=== PATIENT | male | born 1980 | race African-American/Black ===

== ENCOUNTER 2018-02-27 18:17 | Emergency (ER) | payer MEDICAID ==
[~2018-02-27] VITALS: Ht 182.9 cm; Wt 75.0 kg
[~2018-02-27 18:17] MED LIST: SEROQUEL; TRAZADONE
[2018-02-27 20:23] LABS: BASOPHILS % 0.3 % (0.0-2.0); EOSINOPHILS % 1.4 % (0.0-5.0); HEMATOCRIT. 40.5 % (42.0-52.0); HEMOGLOBIN. 13.6 g/dL (14.0-18.0); LYMPHOCYTES % 47.3 % (20.0-50.0); MEAN CORPUSCULAR HEMOGLOBIN 31.8 pg (28.0-32.0); MEAN CORPUSCULAR VOLUME 94.7 fL (80.0-94.0); MEAN PLATELET VOLUME 7.4 fl (7.4-10.4); MONOCYTES % 5.8 % (2.0-8.0); NEUTROPHILS % 45.2 % (40.0-76.0); PLATELET 201 x1000/uL (130-400); RED BLOOD CELL COUNT 4.28 mill/uL (4.7-6.1); RED CELL DISTRIBUTION WIDTH 12.8 % (11.6-14.6)
[2018-02-27 20:26] LABS: CHLORIDE 108 mEq/L (98-107)
[2018-02-27 20:30] LABS: ETHANOL BLOOD < 10 mg/dL
[2018-02-27 23:11] LABS: *AMPHETAMINES SCREEN URINE NEGATIVE (NEGATIVE)
[2018-02-27 23:12] LABS: *BARBITURATES SCREEN URINE NEGATIVE (NEGATIVE); *BENZODIAZEPINES SCREEN URINE NEGATIVE (NEGATIVE); *COCAINE SCREEN URINE NEGATIVE (NEGATIVE); METHADONE URINE SCREEN NEGATIVE (NEGATIVE); OPIATES URINE SCREEN NEGATIVE (NEGATIVE); PHENCYCLIDINE URINE SCREEN NEGATIVE (NEGATIVE)
[2018-02-27 23:13] LABS: CANNABINOID URINE SCREEN PRESUMTIVE POSITIVE (NEGATIVE)
[2018-02-28 17:45] VITALS: BP 134/74
== END 2018-02-28 17:47 | disposition home or self-care (01) ==
LOC: ER 18:17
DX: R44.0 Auditory hallucinations (principal); F20.9 Schizophrenia, unspecified; I10 Essential (primary) hypertension; F17.200 Nicotine dependence, unspecified, uncomplicated; F12.10 Cannabis abuse, uncomplicated; Z79.899 Other long term (current) drug therapy
CPT/HCPCS: 36415; 80053; 80305; 80307; 80329; 85025; 99284; G0482; J7030

== ENCOUNTER 2018-10-12 19:52 | Emergency (ER) | payer MEDICAID ==
[~2018-10-12] VITALS: Ht 188 cm; Wt 80.0 kg
[2018-10-13 05:02] LABS: BASOPHILS % 0.5 % (0.0-2.0); EOSINOPHILS % 1.1 % (0.0-5.0); HEMATOCRIT. 42.2 % (42.0-52.0); HEMOGLOBIN. 14.4 g/dL (14.0-18.0); MEAN CORPUSCULAR HEMOGLOBIN 32.1 pg (28.0-32.0); MEAN CORPUSCULAR VOLUME 93.9 fL (80.0-94.0); MEAN PLATELET VOLUME 7.4 fl (7.4-10.4); MONOCYTES % 7.3 % (2.0-8.0); NEUTROPHILS % 60.1 % (40.0-76.0); PLATELET 192 x1000/uL (130-400); RED CELL DISTRIBUTION WIDTH 12.7 % (11.6-14.6)
[2018-10-13 05:03] LABS: CLARITY URINE CLEAR (CLEAR); COLOR URINE YELLOW (YELLOW); KETONES URINE NEGATIVE (NEGATIVE); LEUKOCYTE ESTERASE URINE NEGATIVE (NEGATIVE); NITRITE URINE NEGATIVE (NEGATIVE); OCCULT BLOOD URINE NEGATIVE (NEGATIVE); PH URINE 5.5 (4.5-8.0); PROTEIN URINE NEGATIVE (NEGATIVE); SPECIFIC GRAVITY URINE 1.013 (1.005-1.030); UROBILINOGEN URINE 0.2 E.U./dL (0.2-1.0)
[2018-10-13 05:09] LABS: CHLORIDE 107 mEq/L (98-107)
[2018-10-13 15:22] VITALS: BP 138/88
== END 2018-10-13 15:23 | disposition home or self-care (01) ==
LOC: ER 22:46
DX: R07.89 Other chest pain (principal); F20.9 Schizophrenia, unspecified; I10 Essential (primary) hypertension; F12.10 Cannabis abuse, uncomplicated; F17.210 Nicotine dependence, cigarettes, uncomplicated; Z98.890 Other specified postprocedural states
CPT/HCPCS: 36415; 71046; 80053; 81003; 83690; 85025; 99284; Z7610

== ENCOUNTER 2018-11-26 21:43 | Emergency (ER) | payer MEDICAID ==
[~2018-11-26] VITALS: Ht 188 cm; Wt 70.0 kg
[2018-11-26] MEDS ORDERED: OLANZAPINE 5MG TABLET PO STA (22:11)
[2018-11-26 22:36] LABS: CLARITY URINE CLEAR (CLEAR); COLOR URINE YELLOW (YELLOW); KETONES URINE TRACE (NEGATIVE); LEUKOCYTE ESTERASE URINE NEGATIVE (NEGATIVE); NITRITE URINE NEGATIVE (NEGATIVE); OCCULT BLOOD URINE NEGATIVE (NEGATIVE); PROTEIN URINE NEGATIVE (NEGATIVE); SPECIFIC GRAVITY URINE 1.014 (1.005-1.030)
[2018-11-26 22:48] LABS: BASOPHILS % 0.5 % (0.0-2.0); EOSINOPHILS % 0.5 % (0.0-5.0); HEMATOCRIT. 38.1 % (42.0-52.0); HEMOGLOBIN. 13.6 g/dL (14.0-18.0); LYMPHOCYTES % 29.9 % (20.0-50.0); MEAN CORPUSCULAR HEMOGLOBIN 32.8 pg (28.0-32.0); MEAN CORPUSCULAR VOLUME 91.8 fL (80.0-94.0); MEAN PLATELET VOLUME 7.5 fl (7.4-10.4); MONOCYTES % 6.7 % (2.0-8.0); NEUTROPHILS % 62.4 % (40.0-76.0); PLATELET 221 x1000/uL (130-400); RED BLOOD CELL COUNT 4.15 mill/uL (4.7-6.1); RED CELL DISTRIBUTION WIDTH 12.5 % (11.6-14.6)
[2018-11-26 22:49] LABS: CHLORIDE 105 mEq/L (98-107)
[2018-11-26 22:53] LABS: ETHANOL BLOOD < 10 mg/dL
[2018-11-26 22:54] LABS: METHADONE URINE SCREEN NEGATIVE (NEGATIVE); OPIATES URINE SCREEN NEGATIVE (NEGATIVE)
[2018-11-26 22:55] LABS: *AMPHETAMINES SCREEN URINE NEGATIVE (NEGATIVE); *BARBITURATES SCREEN URINE NEGATIVE (NEGATIVE); *BENZODIAZEPINES SCREEN URINE NEGATIVE (NEGATIVE); *COCAINE SCREEN URINE NEGATIVE (NEGATIVE); CANNABINOID URINE SCREEN PRESUMTIVE POSITIVE (NEGATIVE); PHENCYCLIDINE URINE SCREEN NEGATIVE (NEGATIVE)
[2018-11-26] MEDS ORDERED: POTASSIUM CHLORIDE 20MEQ TABLET SR PO ONE (23:00)
[2018-11-27 11:30] VITALS: BP 115/80
== END 2018-11-27 12:01 | disposition home or self-care (01) ==
LOC: ER 22:29
DX: R44.0 Auditory hallucinations (principal); E87.6 Hypokalemia; F12.10 Cannabis abuse, uncomplicated; I10 Essential (primary) hypertension; F17.200 Nicotine dependence, unspecified, uncomplicated; Z91.14 Patient's other noncompliance with medication regimen
CPT/HCPCS: 36415; 80305; 80320; 99284; G0480

== ENCOUNTER 2021-06-27 22:19 | Emergency (ER) | payer MEDICAID ==
[~2021-06-27] VITALS: Ht 190.5 cm; Wt 82.0 kg
[2021-06-27 23:07] LABS: BASOPHILS % 0.2 % (0.0-2.0); EOSINOPHILS % 1.5 % (0.0-5.0); HEMATOCRIT. 40.2 % (42.0-52.0); HEMOGLOBIN. 13.7 g/dL (14.0-18.0); LYMPHOCYTES % 48.7 % (20.0-50.0); MEAN CORPUSCULAR HEMOGLOBIN 31.6 pg (28.0-32.0); MEAN CORPUSCULAR VOLUME 92.8 fL (80.0-94.0); MEAN PLATELET VOLUME 7.2 fl (7.4-10.4); MONOCYTES % 6.8 % (2.0-8.0); NEUTROPHILS % 42.8 % (40.0-76.0); PLATELET 214 x1000/uL (130-400); RED BLOOD CELL COUNT 4.33 mill/uL (4.7-6.1); RED CELL DISTRIBUTION WIDTH 12.4 % (11.6-14.6)
[2021-06-27 23:12] LABS: CHLORIDE 112 mEq/L (98-107)
[2021-06-27 23:17] LABS: ETHANOL BLOOD < 10 mg/dL
[2021-06-28 01:17] LABS: CLARITY URINE CLEAR (CLEAR); COLOR URINE YELLOW (YELLOW); KETONES URINE NEGATIVE (NEGATIVE); LEUKOCYTE ESTERASE URINE NEGATIVE (NEGATIVE); NITRITE URINE NEGATIVE (NEGATIVE); OCCULT BLOOD URINE NEGATIVE (NEGATIVE); PH URINE 5.5 (4.5-8.0); PROTEIN URINE NEGATIVE (NEGATIVE); SPECIFIC GRAVITY URINE 1.028 (1.005-1.030)
[2021-06-28 01:54] LABS: *AMPHETAMINES SCREEN URINE NEGATIVE (NEGATIVE); *BARBITURATES SCREEN URINE NEGATIVE (NEGATIVE); *BENZODIAZEPINES SCREEN URINE NEGATIVE (NEGATIVE); *COCAINE SCREEN URINE NEGATIVE (NEGATIVE); METHADONE URINE SCREEN NEGATIVE (NEGATIVE); OPIATES URINE SCREEN NEGATIVE (NEGATIVE)
[2021-06-28 01:55] LABS: CANNABINOID URINE SCREEN PRESUMTIVE POSITIVE (NEGATIVE); PHENCYCLIDINE URINE SCREEN NEGATIVE (NEGATIVE)
[2021-06-28] MEDS ORDERED: SERTRALINE HCL 25MG TABLET PO SCH (09:00)
[2021-06-28] MEDS ORDERED: RISPERIDONE 1MG TABLET PO SCH (09:00)
[2021-06-28 13:16] VITALS: BP 126/87
[2021-06-28] MEDS ORDERED: TRAZODONE HCL 50MG TABLET PO SCH (21:00)
== END 2021-06-28 17:45 | disposition home or self-care (01) ==
LOC: ER 22:19
DX: R44.0 Auditory hallucinations (principal); Z98.890 Other specified postprocedural states; Z86.59 Personal history of other mental and behavioral disorders
CPT/HCPCS: 36415; 80053; 80305; 80307; 80320; 80329; 81003; 85025; 99285; Z7610; G0480

== ENCOUNTER 2022-06-25 00:10 | Emergency (ER) | payer MEDICAID ==
[~2022-06-25] VITALS: Ht 177.8 cm; Wt 75.0 kg
[2022-06-25 01:12] LABS: BASOPHILS % 0.5 % (0.0-2.0); EOSINOPHILS % 0.8 % (0.0-5.0); HEMATOCRIT. 41.5 % (42.0-52.0); HEMOGLOBIN. 14.5 g/dL (14.0-18.0); MEAN CORPUSCULAR VOLUME 94.8 fL (80.0-94.0); MEAN PLATELET VOLUME 7.1 fl (7.4-10.4); MONOCYTES % 6.9 % (2.0-8.0); NEUTROPHILS % 58.8 % (40.0-76.0); PLATELET 208 x1000/uL (130-400); RED BLOOD CELL COUNT 4.38 mill/uL (4.7-6.1); RED CELL DISTRIBUTION WIDTH 12.8 % (11.6-14.6)
[2022-06-25 01:13] LABS: CHLORIDE 103 mEq/L (98-107)
[2022-06-25 01:21] LABS: ETHANOL BLOOD < 10 mg/dL
[2022-06-25 06:17] LABS: *AMPHETAMINES SCREEN URINE NEGATIVE (NEGATIVE); *BARBITURATES SCREEN URINE NEGATIVE (NEGATIVE); *BENZODIAZEPINES SCREEN URINE NEGATIVE (NEGATIVE); *COCAINE SCREEN URINE NEGATIVE (NEGATIVE); CANNABINOID URINE SCREEN PRESUMTIVE POSITIVE (NEGATIVE); METHADONE URINE SCREEN NEGATIVE (NEGATIVE); OPIATES URINE SCREEN NEGATIVE (NEGATIVE); PHENCYCLIDINE URINE SCREEN NEGATIVE (NEGATIVE)
[2022-06-25] MEDS ORDERED: QUET200T MT (15:06)
[2022-06-25 15:53] VITALS: BP 115/84
[2022-06-25] MEDS ORDERED: QUETIAPINE FUMARATE 50MG TABLET PO SCH (21:00)
== END 2022-06-25 15:54 | disposition home or self-care (01) ==
LOC: ER 00:10
DX: F20.9 Schizophrenia, unspecified (principal); F32.A Depression, unspecified; R45.851 Suicidal ideations; I10 Essential (primary) hypertension; F12.10 Cannabis abuse, uncomplicated; Z20.822 Contact with and (suspected) exposure to COVID-19
CPT/HCPCS: 36415; 80053; 80305; 80307; 80320; 80329; 85025; 87426; 99285; G0480

== ENCOUNTER 2023-02-05 05:40 | Emergency (ER) | payer MEDICAID ==
[~2023-02-05] VITALS: Ht 188 cm; Wt 82.0 kg
[~2023-02-05 05:40] MED LIST changes: +QUET200T MT
[2023-02-05 06:03] VITALS: O2SAT 100
[2023-02-05 06:31] LABS: BASOPHILS % 0.7 % (0.0-2.0); EOSINOPHILS % 0.5 % (0.0-5.0); HEMATOCRIT. 41.5 % (42.0-52.0); HEMOGLOBIN. 14.6 g/dL (14.0-18.0); LYMPHOCYTES % 39.4 % (20.0-50.0); MEAN CORPUSCULAR HEMOGLOBIN 31.8 pg (28.0-32.0); MEAN CORPUSCULAR VOLUME 90.9 fL (80.0-94.0); MEAN PLATELET VOLUME 7.2 fl (7.4-10.4); MONOCYTES % 7.9 % (2.0-8.0); NEUTROPHILS % 51.5 % (40.0-76.0); PLATELET 187 x1000/uL (130-400); RED BLOOD CELL COUNT 4.57 mill/uL (4.7-6.1); RED CELL DISTRIBUTION WIDTH 12.5 % (11.6-14.6); WHITE BLOOD COUNT 5.5 x1000/uL (4.5-11.0)
[2023-02-05 06:44] LABS: CHLORIDE 105 mEq/L (98-107); INDEX HEMOLYSI 1 (1-3); INDEX ICTERIC 1 (1-4); INDEX LIPEMIC 1 (1-3); POTASSIUM 3.5 mEq/L (3.5-5.1); SODIUM 138 mEq/L (136-145)
[2023-02-05 06:51] LABS: ALANINE AMINOTRANSFERASE 29 IU/L (13-61); ALBUMIN 4.1 g/dL (3.4-5.0); ASPARTATE AMINOTRANSFERASE 40 IU/L (15-37); BILIRUBIN TOTAL 0.9 mg/dL (0.1-1.0); CALCIUM 8.6 mg/dL (8.5-10.1); CARBON DIOXIDE 31 mEq/L (21-32); ETHANOL BLOOD < 10 mg/dL (-10); GLUCOSE 92 mg/dL (70-105); PROTEIN TOTAL 7.9 g/dL (6.0-8.3); UREA NITROGEN BLOOD 22 mg/dL (7-21)
[2023-02-05 07:23] LABS: CLARITY URINE CLEAR (CLEAR); COLOR URINE DARK YELLOW (YELLOW); GLUCOSE URINE NEGATIVE (NEGATIVE); KETONES URINE 1+ (NEGATIVE); LEUKOCYTE ESTERASE URINE NEGATIVE (NEGATIVE); NITRITE URINE NEGATIVE (NEGATIVE); OCCULT BLOOD URINE NEGATIVE (NEGATIVE); PH URINE 5.5 (4.5-8.0); PROTEIN URINE TRACE (NEGATIVE); SPECIFIC GRAVITY URINE 1.033 (1.005-1.030)
[2023-02-05 07:50] LABS: BACTERIA URINE 1+; MUCUS URINE 2+ /lpf (NONE/TRACE); SQUAMOUS EPITHELIAL CELL URINE 1+ /lpf (RARE/1+)
[2023-02-05 07:51] LABS: RBC URINE 0-2 /hpf (0-2); WBC URINE 0-2 /hpf (0-2); YEAST URINE NONE SEEN
[2023-02-05 08:05] LABS: *AMPHETAMINES SCREEN URINE NEGATIVE (NEGATIVE); *BARBITURATES SCREEN URINE NEGATIVE (NEGATIVE); *BENZODIAZEPINES SCREEN URINE NEGATIVE (NEGATIVE); *COCAINE SCREEN URINE NEGATIVE (NEGATIVE); CANNABINOID URINE SCREEN PRESUMTIVE POSITIVE (NEGATIVE); ECSTASY MDMA SCREEN URINE NEGATIVE (NEGATIVE); METHADONE URINE SCREEN NEGATIVE (NEGATIVE); OPIATES URINE SCREEN NEGATIVE (NEGATIVE); PHENCYCLIDINE URINE SCREEN NEGATIVE (NEGATIVE)
[2023-02-05] MEDS: QUETIAPINE FUMARATE 50MG TABLET PO SCH ×2 (13:15→14:00)
[2023-02-06 03:41] VITALS: BP 130/90; PULSE 61; RESP 12; TEMP 98.1
== END 2023-02-06 03:56 ==
LOC: ER 05:40
DX: R45.851 Suicidal ideations (principal); F20.9 Schizophrenia, unspecified; F12.90 Cannabis use, unspecified, uncomplicated; Z98.890 Other specified postprocedural states
CPT/HCPCS: 80053; 80305; 81003; 80307; 80329; 80320; 85025; 36415; 99285; 87426; Z7610 ×2; C9803; G0480